=== PATIENT | female | born 1955 ===

== ENCOUNTER → 2021-02-10 14:50 | Outpatient (BNVA) | payer OTHER, SELFPAY | PROVIDERS: PCP Internal Medicine; Visit Provider Internal Medicine | DX: S81.812A Laceration without foreign body, left lower leg, initial encounter (principal); W26.9XXA Contact with unspecified sharp object(s), initial encounter | CPT/HCPCS: 99203 ==

== ENCOUNTER → 2021-02-12 10:21 | Outpatient (BNVA) | payer OTHER, SELFPAY | PROVIDERS: PCP Internal Medicine; Visit Provider Physician Assistant | DX: S81.812A Laceration without foreign body, left lower leg, initial encounter (principal); X58.XXXA Exposure to other specified factors, initial encounter | CPT/HCPCS: 99214 ==

== ENCOUNTER → 2021-02-17 14:26 | Outpatient (BNVA) | payer OTHER, SELFPAY | PROVIDERS: PCP Internal Medicine; Visit Provider Internal Medicine | DX: L03.116 Cellulitis of left lower limb (principal) | CPT/HCPCS: 87071; 87205; 99214 ==

== ENCOUNTER → 2021-02-20 13:43 | Outpatient (BNVA) | payer OTHER, SELFPAY | PROVIDERS: PCP Internal Medicine; Visit Provider Internal Medicine | DX: S81.812D Laceration without foreign body, left lower leg, subsequent encounter (principal); L03.116 Cellulitis of left lower limb; W26.9XXD Contact with unspecified sharp object(s), subsequent encounter | CPT/HCPCS: 99213 ==

== ENCOUNTER → 2022-02-25 10:38 | Outpatient (BNVA) | payer OTHER, SELFPAY | PROVIDERS: PCP Internal Medicine; Visit Provider Physician Assistant | DX: S69.91XD Unspecified injury of right wrist, hand and finger(s), subsequent encounter (principal); W23.0XXD Caught, crushed, jammed, or pinched between moving objects, subsequent encounter | CPT/HCPCS: 73110; 73130; 99203 ==

== ENCOUNTER 2022-03-10 | Outpatient (REF) | payer OTHER, SELFPAY ==
--- NOTE | ~2022-03-10 | XR_ITS ---
EXAMINATION: XR HAND, RIGHT CLINICAL INFORMATION: Pain. COMPARISON: 02/25/2022 wrist films TECHNIQUE: AP and lateral views of the right hand. FINDINGS: There is degeneration at the level of the 1st digit. This concludes the base of the thumb and MCP joint as well as the interphalangeal joint. There is no convincing evidence for an acute fracture or dislocation on this limited study. Some dystrophic calcification likely present at the MCP joint toward the radial aspect. Cannot completely exclude avulsion fracture but this would require a traumatic history. XR/XR hand RT min 3V IMPRESSION: Degenerative changes. No acute finding. If further evaluation is warranted recommend MR
== END 2022-03-10 00:01 ==
LOC: HO.HOSX
PROVIDERS: Visit Provider Physician Assistant
DX: S60.221A Contusion of right hand, initial encounter (principal)
CPT/HCPCS: 73130; 99202

== ENCOUNTER → 2022-05-19 13:33 | Outpatient (BNVA) | payer BC, OTHER, SELFPAY | PROVIDERS: PCP Internal Medicine; Visit Provider Physician Assistant | DX: S60.221D Contusion of right hand, subsequent encounter (principal) | CPT/HCPCS: 99212 ==

== ENCOUNTER → 2022-08-11 14:29 | Outpatient (BNVA) | payer BC, SELFPAY | PROVIDERS: PCP Internal Medicine; Visit Provider Physician Assistant | DX: M19.041 Primary osteoarthritis, right hand (principal) | CPT/HCPCS: 99212 ==

== ENCOUNTER → 2022-09-01 12:46 | Outpatient (BNVA) | payer BC, SELFPAY | PROVIDERS: PCP Internal Medicine; Visit Provider Orthopaedic Surgery ==

== ENCOUNTER 2022-10-27 11:33 | Outpatient (AMB) | payer OTHER, BC, SELFPAY ==
--- NOTE | 2022-10-27 11:39 | MHC.OFFVIS ---
Intake Vital Signs 10/27/22 11:40 Height 5 ft 2 in Weight 115 lb BMI 21.0 Intake Visit Reasons: OV-Osteoarthritis of right hand Intake Note: Gavi 66 yr old - hand dominant male presents today for her right hand contusion from 02/02/22/ O.A hand pain. States she continues to have soreness especially around base of thumb. Allergies acetaminophen [From Tylox] Allergy (Unknown, Verified 10/27/22 11:41) could not focus, hyper atorvastatin [Lipitor] Allergy (Unknown, Verified 10/27/22 11:41) muscle pain codeine Allergy (Unknown, Verified 10/27/22 11:41) could not focus, hyper latex Allergy (Unknown, Verified 10/27/22 11:41) rash oxycodone Allergy (Unknown, Verified 10/27/22 11:41) could not focus Sulfa (Sulfonamide Antibiotics) Allergy (Unknown, Verified 10/27/22 11:41) pt does not remember adhesive Adverse Reaction (Intermediate, Verified 10/27/22 11:41) skin breakdown, degradation of skin to raw layers Hydrocodone-Ibuprofen Allergy (Unknown, Uncoded 10/27/22 11:41) could not focus HPI OV-Osteoarthritis of right hand HPI Details Gavi is a 66 year old right hand dominant woman, 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 On 02/02/22 she injured the right hand at the basal joint when she was trying to set a lock on a wheelchair and her hand slipped and struck the brake of the wheelchair right on the basal joint of the thumb. She has been working light duty since her last appointment, with a 20lb weight limit restriction. She has not been pushing the wheelchairs at school, and feels like she has been able to do her job well.. She says she does still have some pain about the base of her thumb. She describes her pain as an ache and says it worsens with activity. She says she wakes up some mornings with numbness in the dorsal aspect her thumb, but denies numbness in any other digits. She finds some relief from her thumb spica splint, which she wears to work. [facility] Medical History Annual physical exam Elevated CEA Hyperglycemia Hyperlipidemia Hypothyroid Lung nodules Mammogram normal Normal colonoscopy Osteopenia Osteoporosis Sleep apnea Tobacco dependence Vitamin D deficiency Surgical History H/O oophorectomy No pertinent past surgical history Family History Father No problems noted. Mother No problems noted. Social History Housing: House Patient Tobacco Use Status: Current everyday Tobacco user Tobacco use type: Cigarette Cigarettes Per Day: 5 e-Cigarette/Vaping Use: Never Used Current occupational status: employed Cognitive needs: No Hearing needs: No Vision needs: Yes Review of Systems Const All systems reviewed & are unremarkable except as noted in HPI and below Physical Exam Vital Signs: BMI result Body Mass Index 21.0 Const General: no acute distress and alert Orientation/consciousness: patient oriented x3 Neuro General: patient oriented x3 Extrem Other: Evaluation of Right Upper Extremity: The patient is alert, oriented, and in no acute distress Neuro: Median, Ulnar, Radial nerves motor and sensory intact and sensation is normal to the tips of all digits Vascular: Cap refill brisk ROM: She can make a fist and extend all her digits No locking or catching Good active thumb ROM She does have a positive shoulder sign on the right Most tender over the basal joint No tenderness over the A1 brenda or with the 1st dorsal compartment Negative Terri test bilaterally MCP joint stable on exam and no A1 brenda tenderness Psych Appearance: grossly normal Affect: normal affect Attitude: cooperative Assessment & Plan Assessment & Plan (1) Osteoarthritis of right hand: Code(s): M19.041 - Primary osteoarthritis, right hand (2) Contusion of hand, right: Code(s): S60.221A - Contusion of right hand, initial encounter Plan Assessment and plan: 1. Right basal joint osteoarthritis, S/P work related contusion and exacerbation. DOI: 02/02/22 This is a work-related injury I educated her about this condition She continues to have some pain with use of her hand, but her symptoms have improved significantly since her last appointment She is concerned about having to push this full size child in a wheelchair again. She will continue to wear her thumb spica splint with daily activity I discussed activity modification, she is to limit or avoid any heavy or repetitive pinching or gripping activities If she develops any increased aching pain she may benefit from an injection in the future. She was given a note to continue working light duty, increasing her weight limit to 30 lb. Both the patient and I are concerned that pushing a heavy wheelchair may exacerbate her symptoms She will follow up in 3 months to see how she is doing. She may benefit from this being an accommodation for her moving forward. 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 I reassured her that nothing was being recorded and she appeared to be comfortable with this by the end of the visit. Scribed for Robina Stewart MD by Mitch Blackwell, medical dir, on 10/27/22 at 12:10 PM, EST. Coding Level of Care Code Est Pt Level 3 (06684) Diagnoses Osteoarthritis of right hand M19.041 Contusion of hand, right S60.221A
[2022-10-27 11:40] VITALS: BMI 21.0
== END 2022-10-27 12:38 | disposition home or self-care (01) ==
PROVIDERS: Visit Provider Orthopaedic Surgery
DX: S60.221D Contusion of right hand, subsequent encounter (principal); M19.041 Primary osteoarthritis, right hand
CPT/HCPCS: 99213

== ENCOUNTER → 2022-10-27 11:33 | Outpatient (BNVA) | payer OTHER, BC, SELFPAY | PROVIDERS: Visit Provider Orthopaedic Surgery | DX: M19.041 Primary osteoarthritis, right hand (principal); S60.221D Contusion of right hand, subsequent encounter; X58.XXXD Exposure to other specified factors, subsequent encounter | CPT/HCPCS: 99212 ==

== ENCOUNTER → 2023-01-27 13:06 | Outpatient (BNVA) | payer OTHER, BC, SELFPAY | PROVIDERS: PCP Internal Medicine; Visit Provider Orthopaedic Surgery ==

== ENCOUNTER 2023-02-09 12:37 | Outpatient (AMB) | payer OTHER, BC, SELFPAY ==
[2023-02-09 12:43] VITALS: BMI 21.0
--- NOTE | 2023-02-09 12:43 | A.OFFVIS_ITS ---
Intake Vital Signs 02/09/23 12:43 Height 5 ft 2 in Weight 115 lb BMI 21.0 Intake Visit Reasons: OV-Osteoarthritis of right hand Intake Note: Lidia 67 yr old female presents today for her follow up visit for her Right basal joint osteoarthritis, S/P work related contusion and exacerbation. DOI: 02/02/22 This is a work-related injury. States she cont's to use her brace and feels she cont's nick limited ROm. Patient also needs an updated work note with restrictions as needed. Allergies acetaminophen [From Tylox] Allergy (Unknown, Verified 02/09/23 12:50) could not focus, hyper atorvastatin [Lipitor] Allergy (Unknown, Verified 02/09/23 12:50) muscle pain codeine Allergy (Unknown, Verified 02/09/23 12:50) could not focus, hyper latex Allergy (Unknown, Verified 02/09/23 12:50) rash oxycodone Allergy (Unknown, Verified 02/09/23 12:50) could not focus Sulfa (Sulfonamide Antibiotics) Allergy (Unknown, Verified 02/09/23 12:50) pt does not remember adhesive Adverse Reaction (Intermediate, Verified 02/09/23 12:50) skin breakdown, degradation of skin to raw layers Hydrocodone-Ibuprofen Allergy (Unknown, Uncoded 02/09/23 12:50) could not focus HPI OV-Osteoarthritis of right hand HPI Details Gavi is a 67 year old right hand dominant woman, 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 Again, she injured the right hand at the basal joint when she was trying to set a lock on a wheelchair and her hand slipped and struck the brake of the wheelchair right on the basal joint of the thumb. She has been working light duty since her last appointment, with a 30lb weight limit restriction. She has not been pushing the wheelchairs at school, and feels like she has been able to do her job well. She says she does still have some pain about the base of her thumb, along with limited ROM. She describes her pain as an ache and says it worsens with activity. She continues to wear her thumb spica splint with daily activity, including at work, which she finds helpful. She would like an updated work note with her restrictions. She feels that as long as she can avoid pushing a wheelchair she is able to continue working [facility] Medical History Annual physical exam Elevated CEA Hyperglycemia Hyperlipidemia Hypothyroid Lung nodules Mammogram normal Normal colonoscopy Osteopenia Osteoporosis Sleep apnea Tobacco dependence Vitamin D deficiency Surgical History H/O oophorectomy No pertinent past surgical history Family History Father No problems noted. Mother No problems noted. Social History Housing: House Patient Tobacco Use Status: Current everyday Tobacco user Tobacco use type: Cigarette Cigarettes Per Day: 5 e-Cigarette/Vaping Use: Never Used Current occupational status: employed Cognitive needs: No Hearing needs: No Vision needs: Yes Physical Exam Vital Signs: BMI result Body Mass Index 21.0 Const General: no acute distress and alert Orientation/consciousness: patient oriented x3 Neuro General: patient oriented x3 Extrem Other: Evaluation of Right Upper Extremity: The patient is alert, oriented, and in no acute distress Neuro: Median, Ulnar, Radial nerves motor and sensory intact and sensation is normal to the tips of all digits Vascular: Cap refill brisk ROM: She can make a fist and extend all her digits No locking or catching Good active thumb ROM With encouragement she could touch her thumb to the tip of her small finger and then down to the base of the finger She does have a positive shoulder sign on the right Most tender over the basal joint + CMC grind No tenderness over the A1 brenda or with the 1st dorsal compartment Psych Appearance: grossly normal Affect: normal affect Attitude: cooperative Assessment & Plan Assessment & Plan (1) Osteoarthritis of right hand: Code(s): M19.041 - Primary osteoarthritis, right hand (2) Contusion of hand, right: Code(s): S60.221A - Contusion of right hand, initial encounter Plan Assessment and plan: 1. Right basal joint osteoarthritis, S/P work related contusion and exacerbation. DOI: 02/02/22 This is a work-related injury I educated her about this condition She continues to have some pain with use of her hand, but her symptoms have improved significantly since her last appointment She is concerned about having to push this full size child in a wheelchair again. She was fitted for a new comfort cool splint to wear with daily activity, prn She is to remove her splint when at home to work on ROM exercises I discussed activity modification, she is to limit or avoid any heavy or repetitive pinching or gripping activities If she develops any increased aching pain she may benefit from an injection in the future. She was given a note to continue working light duty, with a 30 lb weight limit and no pushing of wheelchairs She can follow up prn Scribed for Robina Stewart MD by Mitch Blackwell, medical donation professional, on 02/09/23 at 1:20 PM, EST. Coding Level of Care Code Est Pt Level 3 (89658) Diagnoses Osteoarthritis of right hand M19.041 Contusion of hand, right S60.221A
== END 2023-02-09 13:53 | disposition home or self-care (01) ==
PROVIDERS: PCP Internal Medicine; Visit Provider Orthopaedic Surgery
DX: S60.221A Contusion of right hand, initial encounter (principal); M19.041 Primary osteoarthritis, right hand
CPT/HCPCS: 99213

== ENCOUNTER → 2023-02-09 12:37 | Outpatient (BNVA) | payer OTHER, BC, SELFPAY | PROVIDERS: PCP Internal Medicine; Visit Provider Orthopaedic Surgery | DX: M19.041 Primary osteoarthritis, right hand (principal); S60.221D Contusion of right hand, subsequent encounter | CPT/HCPCS: 99212 ==

== ENCOUNTER 2023-07-21 13:12 | Outpatient (AMB) | payer BC, SELFPAY ==
[2023-07-21 13:25] VITALS: BP 136/80; PULSE 73; O2SAT 97; BMI 20.8
--- NOTE | 2023-07-21 13:25 | A.OFFPC_ITS ---
Vital Signs 07/21/23 13:25 Height 5 ft 2 in Weight 114 lb BMI 20.8 BP 136/80 Blood Pressure Location Lt brachial Position Sitting Pulse 73 Pulse Source Pulse Oximeter Pulse Oximetry (%) 97 Oxygen Delivery Method Room Air Intake Visit Reasons: Lower abdominal pain, vaginal discomfort Intake Note: Pt is here today for a sick visit. Pt c/o L lower abdominal pain and a lump in the groin area on the L side. Allergies acetaminophen [From Tylox] Allergy (Unknown, Verified 07/21/23 13:36) could not focus, hyper atorvastatin [Lipitor] Allergy (Unknown, Verified 07/21/23 13:36) muscle pain codeine Allergy (Unknown, Verified 07/21/23 13:36) could not focus, hyper latex Allergy (Unknown, Verified 07/21/23 13:36) rash oxycodone Allergy (Unknown, Verified 07/21/23 13:36) could not focus Sulfa (Sulfonamide Antibiotics) Allergy (Unknown, Verified 07/21/23 13:36) pt does not remember adhesive Adverse Reaction (Intermediate, Verified 07/21/23 13:36) skin breakdown, degradation of skin to raw layers Hydrocodone-Ibuprofen Allergy (Unknown, Uncoded 07/21/23 13:36) could not focus Medication List - Last Reconciled 07/21/23 by Julieta Luque MD cholecalciferol (vitamin D3) 50 mcg PO DAILY levothyroxine 125 mcg PO DAILY pravastatin 10 mg PO DAILY Tobacco use date assessed: 07/21/23 Fall risk assessment: 1 Fall in past year Last assessed Fall Risk: 07/21/23 Dental Screening Dental Screen Date: 07/21/23 Did you have a dental visit in the last 12 months?: Yes Did you have a dental problem in the last 6 months where you did not have access to dental care?: No Was dental information given to patient?: Patient has dentist HPI Lower abdominal pain, vaginal discomfort HPI Details Pt presents complaining of increase bloating and intermittent heartburn worse after eating not related to diet and intermittent sharp abdominal pain occasionally radiating to left lower quadrant and vaginal area. Patient reports intermittent constipation and sensation of incomplete defecation for a few months getting worse over last few weeks. Patient denies nausea vomiting hematochezia melena hematuria dysuria. 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 Pt has been feeling a lump in her left groin on and off for few weeks. [facility] Medical History Osteoporosis Sleep apnea Vitamin D deficiency Lung nodules Tobacco dependence Mammogram normal Elevated CEA Normal colonoscopy Hyperglycemia Osteopenia Annual physical exam Hyperlipidemia Hypothyroid Surgical History H/O oophorectomy No pertinent past surgical history Family History Father No problems noted. Mother No problems noted. Social History Housing: House Patient Tobacco Use Status: Current everyday Tobacco user Tobacco use type: Cigarette Cigarettes Per Day: 5 e-Cigarette/Vaping Use: Never Used Current occupational status: employed Cognitive needs: No Hearing needs: No Vision needs: Yes Questionnaire PHQ-9 Over the last 2 weeks, how often have you been bothered by any of the following problems? 1. Little interest or pleasure in doing things: not at all 2. Feeling down, depressed, or hopeless: not at all 3. Trouble falling or staying asleep, or sleeping too much: not at all 4. Feeling tired or having little energy: not at all 5. Poor appetite or overeating: not at all 6. Feeling bad about yourself - or that you are a failure or have let yourself or your family down: not at all 7. Trouble concentrating on things, such as reading the newspaper or watching television: not at all 8. Moving or speaking so slowly that other people could have noticed. Or the opposite - being so fidgety or restless that you have been moving around a lot more than usual: not at all 9. Thoughts that you would be better off or of hurting yourself in some way: not at all Total score: 0 Depression Screening Interpretation: Negative Depression Screening Done: Yes Source: Developed by Drs. David Peña, Lavonne Bruno, Jeff Simmons and colleagues, with an educational marlee from [employer]. Thrive Questionnaire Date Thrive assessed: 07/21/23 I am a: Patient What is your living situation today?: I have a steady place to live Within the past 12 months, did the food you bought not last and you didn't have the money to get more?: Never true Within the past 12 months, did you worry whether your food would run out before you got money to buy more?: Never true Do you have trouble paying for medicines?: No Do you have trouble getting transportation to medical appointments?: No Do you have trouble paying your heating and electricity bill?: No Do you have trouble taking care of your child, family member or friend?: No Do you have trouble with day-to-day activities such as bathing, preparing meals, shopping, managing finances, etc.?: No Are you currently unemployed and looking for a job?: No Are you interested in more education?: No Please select the resources that you would like help with: None THRIVE Score: 0 AUDIT C Alcohol Use Questionnaire (AUDIT-C) 1. How often do you have a drink containing alcohol?: Monthly or less 2. How many drinks containing alcohol do you have on a typical day when you are drinking?: 1 or 2 3. How often do you have six or more drinks on one occasion?: Never Total Score: 1 UMA-7 AMB Questionnaire UMA-7 Date UMA - 7 assessed: 07/29/22 Feeling nervous, anxious, or on edge: 0 = Not at all Not being able to stop or control worryin = Not at all Worrying too much about different things: 0 = Not at all Trouble relaxin = Not at all Being so restless that it is hard to sit still: 0 = Not at all Becoming easily annoyed or irritable: 0 = Not at all Feeling afraid as if something awful might happen: 0 = Not at all Total UMA-7 score (0-4 normal; 5-9 mild; 10-14 moderate; 15-21 severe): 0 Source: Developed by Drs. David Peña, Lavonne Bruno, Jeff Simmons and colleagues, with an educational marlee from [employer]. Review of Systems Const All systems reviewed & are unremarkable except as noted in HPI and below Reports no additional complaints Eyes Reports no additional complaints ENT Reports no additional complaints Card Reports no additional complaints Resp Reports no additional complaints GI Reports no additional complaints Reports no additional complaints Musc Reports no additional complaints Physical exam (Primary Care) Vital Signs: Last Vital Signs Pulse 73 07/21/23 13:25 BP 136/80 07/21/23 13:25 Pulse Ox 97 07/21/23 13:25 Oxygen Delivery Method Room Air 07/21/23 13:25 BMI result Body Mass Index 20.8 Tobacco/Smoking Status: Tobacco use Status Tobacco use date assessed 07/21/23 07/21/23 13:41 Patient Tobacco Use Status Current everyday Tobacco 07/21/23 13:26 Tobacco use type Cigarette 07/21/23 13:26 e-Cigarette/Vaping Use Never Used 07/21/23 13:26 PHQ-9: PHQ-9 Score PHQ-9: Total score 0 07/21/23 13:41 Depression Screening Interpretation: Negative Thrive Assessment: Date of Thrive Assessment Date Thrive assessed 07/21/23 07/21/23 13:41 Const General: no acute distress HENMT Head: Yes normal to inspection Mouth: Normal oral and palatal mucosa present Eyes General: appearance normal, both eyes and all related structures Resp Effort & Inspection: normal respiratory effort Auscultation: clear to auscultation bilaterally Cardio Rhythm: regular rhythm Heart sounds: S1 normal heart sound present and S2 normal heart sound present GI Inspection: Yes normal to inspection Palpation (GI): Tenderness to palpation present (GI) in the LLQ and No Rebound tenderness present Percussion: Yes normal to percussion Auscultation: normal bowel sounds Extrem Other: There is a palpable about 1.5 cm mobile rubbery slightly tender lymph node in left groin Assessment and Plan Assessment & Plan (1) Left groin mass: Code(s): R19.09 - Other intra-abdominal and pelvic swelling, mass and lump Plan: Obtain left groin ultrasound to evaluate (2) Abdominal pain: Code(s): R10.9 - Unspecified abdominal pain Plan: Schedule a CT of the abdomen pelvis to rule out diverticulitis (3) Diverticulitis: Code(s): K57.92 - Diverticulitis of intestine, part unspecified, without perforation or abscess without bleeding Orders: Orders CT abdomen pelvis w IV con Today K57.92 - Diverticulitis of intestine, part unspecified, without perforation or abscess without bleeding, R10.9 - Unspecified abdominal pain Complete Blood Count Auto Diff Today K57.92 - Diverticulitis of intestine, part unspecified, without perforation or abscess without bleeding, R10.9 - Unspecified abdominal pain Blood Urea Nitrogen Today K57.92 - Diverticulitis of intestine, part unspecified, without perforation or abscess without bleeding, R10.9 - Unspecified abdominal pain Creatinine Today K57.92 - Diverticulitis of intestine, part unspecified, without perforation or abscess without bleeding, R10.9 - Unspecified abdominal pain US pelvic limited Today R10.9 - Unspecified abdominal pain, R19.09 - Other intra-abdominal and pelvic swelling, mass and lump Coding Level of Care Code Est Pt Level 3 (59076) Diagnoses Left groin mass R19.09 Abdominal pain R10.9 Diverticulitis K57.92
== END 2023-07-21 15:28 | disposition home or self-care (01) ==
PROVIDERS: PCP Internal Medicine; Visit Provider Internal Medicine
DX: R19.09 Other intra-abdominal and pelvic swelling, mass and lump (principal); R10.9 Unspecified abdominal pain; K57.92 Diverticulitis of intestine, part unspecified, without perforation or abscess without bleeding
CPT/HCPCS: 99213

== ENCOUNTER 2023-07-21 14:34 | Outpatient (REF) | payer BC, OTHER, SELFPAY ==
--- NOTE | ~2023-07-21 | US_ITS ---
EXAMINATION: US PELVIS, LIMITED/FOLLOW UP CLINICAL INFORMATION: Left-sided pain. Lump. COMPARISON: None available. TECHNIQUE: Limited ultrasound examination of the left groin region was performed by the tomography technologist using a high-resolution linear 12 MHz transducer. FINDINGS: The area indicated by the patient was scanned by the technologist. There is no evidence of a fluid collection, soft tissue mass or herniated fat or bowel in the examined left groin. At the site of concern, there is a lymph node of normal size, morphology and echotexture. It measures 0.4 cm in short axis and 1.8 cm in long axis dimension and has an echogenic fatty hilum. US/US pelvic limited IMPRESSION: A normal inguinal lymph node is observed in the site of concern. Otherwise, unremarkable exam.
[2023-07-21 16:07] LABS: MANUAL DIFF FLAG NO
[2023-07-21 16:15] LABS: Basophils Absolute Auto 0.1 X10*3/uL (0.0-0.2); Basophils Percent Auto 0.8 % (0-2); Eosinophils Absolute Auto 0.1 X10*3/uL (0.0-0.4); Eosinophils Percent Auto 0.5 % (0-4); Hematocrit 41.7 % (37.0-47.0); Hemoglobin 14.1 g/dl (12.0-16.0); Imm Gran Abs Auto 0.03 X10*3/uL (0.00-0.03); Imm Gran Pct Auto 0.3 % (0.0-0.4); Lymphocytes Absolute Auto 2.9 X10*3/uL (1.2-4.9); Lymphocytes Percent Auto 28.1 % (20-40); Mean Corpuscular HGB Conc 33.8 g/dl (31.0-35.0); Mean Corpuscular Volume 91.6 fL (80.0-98.0); Mean Platelet Volume 11.9 fL (9.4-12.3); Monocytes Absolute Auto 0.8 X10*3/uL (0.1-1.2); Monocytes Percent Auto 7.4 % (2-11); Neutrophils Absolute Auto 6.5 x10*3/uL (2.0-8.3); Neutrophils Percent Auto 62.9 % (45-73); Platelet Count 325 X10*3/uL (160-400); Red Blood Count 4.55 X10*6/uL (4.20-5.50); Red Cell Distribution Width 12.2 % (11.0-16.0); White Blood Count 10.3 X10*3/uL (4.8-10.8)
[2023-07-21 16:39] LABS: Blood Urea Nitrogen 11 mg/dL (9-16); Estimated Glomerular Filt Rate > 60
[2023-07-25 23:04] LABS: Vitamin K1 285 pg/mL (130-1500)
== END 2023-07-21 14:35 | disposition home or self-care (01) ==
LOC: HO.HMGCX 14:34
PROVIDERS: PCP Internal Medicine; Visit Provider Internal Medicine
DX: K57.92 Diverticulitis of intestine, part unspecified, without perforation or abscess without bleeding (principal); R19.09 Other intra-abdominal and pelvic swelling, mass and lump; S60.221A Contusion of right hand, initial encounter
CPT/HCPCS: 36415; 76857; 82565; 84520; 84597; 85025

== ENCOUNTER 2023-08-02 14:14 | Outpatient (AMB) | payer BC, SELFPAY ==
[2023-08-02 14:15] VITALS: BP 136/78; PULSE 83; O2SAT 98; BMI 20.8
--- NOTE | 2023-08-02 14:15 | MHC.PC.OV ---
Vital Signs 08/02/23 14:15 Height 5 ft 2 in Weight 114 lb BMI 20.8 BP 136/78 Blood Pressure Location Rt brachial Position Sitting Pulse 83 Pulse Source Pulse Oximeter Pulse Oximetry (%) 98 Oxygen Delivery Method Room Air Intake Visit Reasons: PE jesse Luque lives far away Intake Note: Pt is here today for PE. Allergies acetaminophen [From Tylox] Allergy (Unknown, Verified 08/02/23 14:19) could not focus, hyper atorvastatin [Lipitor] Allergy (Unknown, Verified 08/02/23 14:19) muscle pain codeine Allergy (Unknown, Verified 08/02/23 14:19) could not focus, hyper latex Allergy (Unknown, Verified 08/02/23 14:19) rash oxycodone Allergy (Unknown, Verified 08/02/23 14:19) could not focus Sulfa (Sulfonamide Antibiotics) Allergy (Unknown, Verified 08/02/23 14:19) pt does not remember adhesive Adverse Reaction (Intermediate, Verified 08/02/23 14:19) skin breakdown, degradation of skin to raw layers Hydrocodone-Ibuprofen Allergy (Unknown, Uncoded 08/02/23 14:19) could not focus Medication List - Last Reconciled 08/02/23 by Julieta Luque MD cholecalciferol (vitamin D3) 50 mcg PO DAILY levothyroxine 125 mcg PO DAILY pravastatin 10 mg PO DAILY Tobacco use date assessed: 07/21/23 Dental Screening Dental Screen Date: 07/21/23 HPI PE jesse Luque lives far away HPI Details Pt presents for PE. Pt c/o increase gas, more frequent BMs, sensation of not complete elimination on and off for the few months. Pt reports being under a lot of stress at work and feeling more anxious for the last few months. She had abnormal mammogram and is scheduled for stereotactic right breast biopsy for calcification at the end of this month. Patient had negative CT of the abdomen and pelvis. Her last colonoscopy was 5 years ago and patient is interested in follow-up with Dr. Collier to discuss her GI symptoms. [facility] Medical History (Updated 08/02/23 @ 15:56 by Julieta Luque MD) Sleep apnea Vitamin D deficiency Lung nodules Tobacco dependence Mammogram normal Elevated CEA Hyperglycemia Osteopenia Annual physical exam Hyperlipidemia Hypothyroid Surgical History (Updated 08/02/23 @ 16:01 by Julieta Luque MD) H/O oophorectomy No pertinent past surgical history Family History Father No problems noted. Mother No problems noted. Social History Housing: House Patient Tobacco Use Status: Current everyday Tobacco user Tobacco use type: Cigarette Cigarettes Per Day: 5 e-Cigarette/Vaping Use: Never Used service: No Current occupational status: employed Cognitive needs: No Hearing needs: No Vision needs: Yes Questionnaire Thrive Questionnaire Date Thrive assessed: 07/21/23 UMA-7 AMB Questionnaire UMA-7 Date UMA - 7 assessed: 07/29/22 Source: Developed by Drs. David Peña, Lavonne Bruno, Jeff Simmons and colleagues, with an educational marlee from [employer]. Review of Systems Const All systems reviewed & are unremarkable except as noted in HPI and below Reports no additional complaints Eyes Reports no additional complaints ENT Reports no additional complaints Card Reports no additional complaints Resp Reports no additional complaints GI Reports no additional complaints Reports no additional complaints Physical exam (Primary Care) Vital Signs: Last Vital Signs Pulse 83 08/02/23 14:15 BP 136/78 08/02/23 14:15 Pulse Ox 98 08/02/23 14:15 Oxygen Delivery Method Room Air 08/02/23 14:15 BMI result Body Mass Index 20.8 Tobacco/Smoking Status: Tobacco use Status Tobacco use date assessed 07/21/23 08/02/23 14:17 Patient Tobacco Use Status Current everyday Tobacco 08/02/23 14:17 Tobacco use type Cigarette 08/02/23 14:17 e-Cigarette/Vaping Use Never Used 08/02/23 14:17 Thrive Assessment: Date of Thrive Assessment Date Thrive assessed 07/21/23 08/02/23 14:17 Const General: no acute distress HENMT Head: Yes normal to inspection Ears: hearing grossly normal bilaterally Face and sinus: Yes normal facial exam Mouth: Normal oral and palatal mucosa present Throat: Yes posterior oropharynx normal Eyes General: appearance normal, both eyes and all related structures Neck Neck: Yes no lymphadenopathy and Yes supple Resp Effort & Inspection: normal respiratory effort Auscultation: clear to auscultation bilaterally Cardio Rhythm: regular rhythm Heart sounds: S1 normal heart sound present and S2 normal heart sound present GI Inspection: Yes normal to inspection Palpation (GI): Soft to palpation Percussion: Yes normal to percussion Auscultation: normal bowel sounds Skin General skin exam: no rashes or lesions noted Assessment and Plan Assessment & Plan (1) Hyponatremia: Code(s): E87.1 - Hypo-osmolality and hyponatremia Plan: Patient was advised to decrease free water intake and repeat BMP in 1 month (2) Osteopenia: Comment: DEXA 09/2021 T score -2.1 FEMORAL NECK AN AP SPINE, [facility] Code(s): M85.80 - Other specified disorders of bone density and structure, unspecified site Plan: Patient will schedule a repeat DEXA at [facility] (3) Hx of colonoscopy: Comment: Dr. Madden 2019, 1 small polyp Code(s): Z98.890 - Other specified postprocedural states Plan: Referred to GI to discuss new GI symptoms. Patient was advised to have a food diary and add Citrucel daily for fiber (4) Tobacco dependence: Comment: 5 cig/d, 07/08 Code(s): F17.200 - Nicotine dependence, unspecified, uncomplicated Plan: Tobacco quitting discussed with the patient (5) Annual physical exam: Code(s): Z00.00 - Encounter for general adult medical examination without abnormal findings Plan: Well-balanced diet regular physical activity discussed with the patient. She will have a right breast biopsy at [facility] (6) Hypothyroid: Code(s): E03.9 - Hypothyroidism, unspecified Plan: Continue levothyroxine (7) Hyperlipidemia: Code(s): E78.5 - Hyperlipidemia, unspecified Plan: Continue statin, physical in 1 year Orders: Orders Basic Metabolic Panel 1 Month E87.1 - Hypo-osmolality and hyponatremia XR DEXA axial skeleton Today M85.80 - Other specified disorders of bone density and structure, unspecified site Referrals Gastroenterology Referral Z00.00 - Encounter for general adult medical examination without abnormal findings Medications: New hydrocortisone acetate (Proctocort) 30 mg MT BEDTIME 12 ea 3RF Coding Level of Care Code Est Pt Prev Care >65y(23484) Diagnoses Hyponatremia E87.1 Osteopenia M85.80 Hx of colonoscopy Z98.890 Tobacco dependence F17.200 Annual physical exam Z00.00 Hypothyroid E03.9 Hyperlipidemia E78.5
== END 2023-08-02 16:01 | disposition home or self-care (01) ==
PROVIDERS: Visit Provider Internal Medicine
DX: E87.1 Hypo-osmolality and hyponatremia (principal); M85.80 Other specified disorders of bone density and structure, unspecified site; Z98.890 Other specified postprocedural states; F17.200 Nicotine dependence, unspecified, uncomplicated; Z00.00 Encounter for general adult medical examination without abnormal findings; E03.9 Hypothyroidism, unspecified; E78.5 Hyperlipidemia, unspecified
CPT/HCPCS: 99397

== ENCOUNTER 2023-11-16 08:06 | Outpatient (AMB) | payer BC, SELFPAY ==
--- NOTE | 2023-11-16 08:08 | MHC.PC.OV ---
Vital Signs 11/16/23 08:09 Height 5 ft 2 in Weight 118 lb BMI 21.6 BP 136/82 Blood Pressure Location Lt brachial Position Sitting Pulse 72 Pulse Source Pulse Oximeter Pulse Oximetry (%) 99 Oxygen Delivery Method Room Air Intake Visit Reasons: Follow up visit Intake Note: Su is here today for a follow up visit on lump on her groin area. Allergies acetaminophen [From Tylox] Allergy (Unknown, Verified 11/16/23 08:11) could not focus, hyper atorvastatin [Lipitor] Allergy (Unknown, Verified 11/16/23 08:11) muscle pain codeine Allergy (Unknown, Verified 11/16/23 08:11) could not focus, hyper latex Allergy (Unknown, Verified 11/16/23 08:11) rash oxycodone Allergy (Unknown, Verified 11/16/23 08:11) could not focus Sulfa (Sulfonamide Antibiotics) Allergy (Unknown, Verified 11/16/23 08:11) pt does not remember adhesive Adverse Reaction (Intermediate, Verified 11/16/23 08:11) skin breakdown, degradation of skin to raw layers Hydrocodone-Ibuprofen Allergy (Unknown, Uncoded 11/16/23 08:11) could not focus Medication List - Last Reconciled 11/16/23 by Julieta Luque MD cholecalciferol (vitamin D3) 50 mcg PO DAILY hydrocortisone acetate (Proctocort) 30 mg NM BEDTIME levothyroxine 125 mcg PO DAILY pravastatin 10 mg PO DAILY Tobacco use date assessed: 11/16/23 Fall risk assessment: No Falls in past year Last assessed Fall Risk: 11/16/23 Dental Screening Dental Screen Date: 07/21/23 HPI Follow up visit HPI Details Pt presents for for follow-up of persistent left groin discomfort and palpable lump. Patient had pelvic and inguinal area ultrasound and a CT of the abdomen and pelvis which were negative for pathology. Patient was evaluated by GI PA Dr. Madden's office and was advised to take fiber and Colace. Patient denies constipation hematochezia melena and is up-to-date with colonoscopy. Patient has been feeling very anxious and concerned about her health because she had right breast biopsy consistent with fat epithelial atypia and excision of the area was recommended by [facility] surgeon Dr. Nora Ellis. [facility] Medical History Sleep apnea Vitamin D deficiency Lung nodules Tobacco dependence Mammogram normal Elevated CEA Hyperglycemia Osteopenia Annual physical exam Hyperlipidemia Hypothyroid Surgical History H/O oophorectomy No pertinent past surgical history Family History Father No problems noted. Mother No problems noted. Social History Housing: House Patient Tobacco Use Status: Current everyday Tobacco user Tobacco use type: Cigarette Cigarettes Per Day: 5 e-Cigarette/Vaping Use: Never Used service: No Current occupational status: employed Cognitive needs: No Hearing needs: No Vision needs: Yes Questionnaire PHQ-9 Over the last 2 weeks, how often have you been bothered by any of the following problems? 1. Little interest or pleasure in doing things: not at all 2. Feeling down, depressed, or hopeless: not at all 3. Trouble falling or staying asleep, or sleeping too much: not at all 4. Feeling tired or having little energy: not at all 5. Poor appetite or overeating: not at all 6. Feeling bad about yourself - or that you are a failure or have let yourself or your family down: not at all 7. Trouble concentrating on things, such as reading the newspaper or watching television: not at all 8. Moving or speaking so slowly that other people could have noticed. Or the opposite - being so fidgety or restless that you have been moving around a lot more than usual: not at all 9. Thoughts that you would be better off or of hurting yourself in some way: not at all Total score: 0 Depression Screening Interpretation: Negative Depression Screening Done: Yes Source: Developed by Drs. David Peña, Lavonne Bruno, Jeff Simmons and colleagues, with an educational marlee from [employer]. Thrive Questionnaire Date Thrive assessed: 11/16/23 I am a: Patient What is your living situation today?: I choose not to answer this question Within the past 12 months, did the food you bought not last and you didn't have the money to get more?: I choose not to answer this question Within the past 12 months, did you worry whether your food would run out before you got money to buy more?: I choose not to answer this question Do you have trouble paying for medicines?: I choose not to answer this question Do you have trouble getting transportation to medical appointments?: I choose not to answer this question Do you have trouble paying your heating and electricity bill?: I choose not to answer this question Do you have trouble taking care of your child, family member or friend?: I choose not to answer this question Do you have trouble with day-to-day activities such as bathing, preparing meals, shopping, managing finances, etc.?: I choose not to answer this question Are you currently unemployed and looking for a job?: I choose not to answer this question Are you interested in more education?: I choose not to answer this question Please select the resources that you would like help with: Housing/Group Home Currently or been in a relationship where the following occur: I choose not to answer THRIVE Score: 0 AUDIT C Alcohol Use Questionnaire (AUDIT-C) 1. How often do you have a drink containing alcohol?: 2-3 times a week 2. How many drinks containing alcohol do you have on a typical day when you are drinking?: 10 or more 3. How often do you have six or more drinks on one occasion?: Daily or almost daily Total Score: 11 UMA-7 AMB Questionnaire UMA-7 Date UMA - 7 assessed: 11/16/23 Feeling nervous, anxious, or on edge: 0 = Not at all Not being able to stop or control worryin = Not at all Worrying too much about different things: 0 = Not at all Trouble relaxin = Not at all Being so restless that it is hard to sit still: 0 = Not at all Becoming easily annoyed or irritable: 0 = Not at all Feeling afraid as if something awful might happen: 0 = Not at all Total UMA-7 score (0-4 normal; 5-9 mild; 10-14 moderate; 15-21 severe): 0 Source: Developed by Drs. David Peña, Lavonne Bruno, Jeff Simmons and colleagues, with an educational marlee from [employer]. Review of Systems Const All systems reviewed & are unremarkable except as noted in HPI and below Eyes Reports no additional complaints ENT Reports no additional complaints Card Reports no additional complaints Resp Reports no additional complaints GI Reports no additional complaints Reports no additional complaints Physical exam (Primary Care) Vital Signs: Last Vital Signs Pulse 72 11/16/23 08:09 BP 136/82 11/16/23 08:09 Pulse Ox 99 11/16/23 08:09 Oxygen Delivery Method Room Air 11/16/23 08:09 BMI result Body Mass Index 21.6 Tobacco/Smoking Status: Tobacco use Status Tobacco use date assessed 11/16/23 11/16/23 08:25 Patient Tobacco Use Status Current everyday Tobacco 11/16/23 08:25 Tobacco use type Cigarette 11/16/23 08:25 e-Cigarette/Vaping Use Never Used 11/16/23 08:25 PHQ-9: PHQ-9 Score PHQ-9: Total score 0 11/16/23 08:49 Depression Screening Interpretation: Negative Thrive Assessment: Date of Thrive Assessment Date Thrive assessed 11/16/23 11/16/23 08:25 Currently or been in a relationship where the following occur: I choose not to answer Const General: no acute distress HENMT Head: Yes normal to inspection Eyes General: appearance normal, both eyes and all related structures Resp Effort & Inspection: normal respiratory effort Auscultation: clear to auscultation bilaterally Cardio Rhythm: regular rhythm Heart sounds: S1 normal heart sound present and S2 normal heart sound present GI Other: There is a slight tenderness to palpation in the right inguinal area there are small mobile lymph nodes present but no erythema warmth Inspection: Yes normal to inspection Palpation (GI): Soft to palpation Percussion: Yes normal to percussion Auscultation: normal bowel sounds Assessment and Plan Assessment & Plan (1) Lump in the groin: Code(s): R19.09 - Other intra-abdominal and pelvic swelling, mass and lump Plan: Patient requested referral to a general surgeon at [facility]. She was given copy of report of the pelvic and abdominal ultrasound and CT (2) Hyponatremia: Code(s): E87.1 - Hypo-osmolality and hyponatremia Plan: Check BMP today (3) Anxiety: Code(s): F41.9 - Anxiety disorder, unspecified Plan: Stress management and mindfulness discussed with the patient. She declined medications and referral to a counselor Orders: Orders Basic Metabolic Panel Today E87.1 - Hypo-osmolality and hyponatremia Referrals General Surgery Referral R19.09 - Other intra-abdominal and pelvic swelling, mass and lump Coding Level of Care Code Est Pt Level 4 (88798) Diagnoses Lump in the groin R19.09 Hyponatremia E87.1 Anxiety F41.9
[2023-11-16 08:09] VITALS: BP 136/82; PULSE 72; O2SAT 99; BMI 21.6
== END 2023-11-16 10:20 | disposition home or self-care (01) ==
PROVIDERS: PCP Internal Medicine; Visit Provider Internal Medicine
DX: R19.09 Other intra-abdominal and pelvic swelling, mass and lump (principal); E87.1 Hypo-osmolality and hyponatremia; F41.9 Anxiety disorder, unspecified
CPT/HCPCS: 99214

== ENCOUNTER 2023-11-16 09:07 | Outpatient (REF) | payer BC, SELFPAY ==
[2023-11-16 10:36] LABS: Anion Gap 12 (12-20); Blood Urea Nitrogen 9 mg/dL (9-16); Calcium 9.9 mg/dL (8.4-10.2); Carbon Dioxide 28 mmol/L (22-29); Chloride 99 mmol/L (96-108); Estimated Glomerular Filt Rate > 60; Glucose Random 110 mg/dL (60-115); Potassium 5.2 mmol/L (3.3-5.1); Sodium 134 mmol/L (135-145)
== END 2023-11-16 09:08 | disposition home or self-care (01) ==
LOC: HO.HMGCLDS 09:07
PROVIDERS: PCP Internal Medicine; Visit Provider Internal Medicine
DX: E87.1 Hypo-osmolality and hyponatremia (principal)
CPT/HCPCS: 36415; 80048

== ENCOUNTER 2024-01-28 10:16 | Outpatient (AMB) | payer BC, SELFPAY ==
[2024-01-28 10:28] VITALS: BP 106/62; PULSE 60; O2SAT 96; BMI 20.7
--- NOTE | 2024-01-28 10:28 | MHC.PC.OV ---
Vital Signs 01/28/24 10:28 Height 5 ft 2 in Weight 113 lb BMI 20.7 BP 106/62 Blood Pressure Location Rt brachial Position Sitting Pulse 60 Pulse Source Pulse Oximeter Pulse Oximetry (%) 96 Oxygen Delivery Method Room Air Intake Visit Reasons: Sinus and cough Intake Note: Pt is here today for a sick visit. Pt c/o pressure in her chest that goes to her back because of the cough she is having. Pt states that most days her pain is 5 out 10. Pt states that she was on Doxycycline recently for acute sinusitis at the Urgent care. Pt would like to get a work note for today. Allergies acetaminophen [From Tylox] Allergy (Unknown, Verified 01/28/24 10:34) could not focus, hyper atorvastatin [Lipitor] Allergy (Unknown, Verified 01/28/24 10:34) muscle pain codeine Allergy (Unknown, Verified 01/28/24 10:34) could not focus, hyper latex Allergy (Unknown, Verified 01/28/24 10:34) rash oxycodone Allergy (Unknown, Verified 01/28/24 10:34) could not focus Sulfa (Sulfonamide Antibiotics) Allergy (Unknown, Verified 01/28/24 10:34) pt does not remember amoxicillin Allergy (Verified 01/28/24 10:51) vomiting nausea adhesive Adverse Reaction (Intermediate, Verified 01/28/24 10:34) skin breakdown, degradation of skin to raw layers Hydrocodone-Ibuprofen Allergy (Unknown, Uncoded 01/28/24 10:34) could not focus Medication List - Last Reconciled 01/28/24 by Julieta Luque MD benzonatate 100 mg PO TID cholecalciferol (vitamin D3) 50 mcg PO DAILY doxycycline hyclate 100 mg PO BID hydrocortisone acetate (Proctocort) 30 mg MA BEDTIME levothyroxine 125 mcg PO DAILY pravastatin 10 mg PO DAILY Tobacco use date assessed: 01/28/24 Dental Screening Dental Screen Date: 07/21/23 HPI Sinus and cough HPI Details Pt c/o sinus congestion, postnasal drip, persistent cough, with white sputum, chest pressure on and off for the last 2 weeks lasting a few hours at a time and mid back pain. Patient denies fever chills pleurisy shortness of breaths nausea vomiting. Pt had negative stress test at [facility] last week. She is scheduled to have a breast surgery next week at [facility]. Patient reports feeling anxious and worrying about her grandson who may have autism. She denies depression or suicide ideation. [facility] Medical History Sleep apnea Vitamin D deficiency Lung nodules Tobacco dependence Mammogram normal Elevated CEA Hyperglycemia Osteopenia Annual physical exam Hyperlipidemia Hypothyroid Surgical History H/O oophorectomy No pertinent past surgical history Family History Father No problems noted. Mother No problems noted. Social History Housing: House Patient Tobacco Use Status: Current everyday Tobacco user Tobacco use type: Cigarette Cigarettes Per Day: 5 e-Cigarette/Vaping Use: Never Used service: No Current occupational status: employed Cognitive needs: No Hearing needs: No Vision needs: Yes Questionnaire Thrive Questionnaire Date Thrive assessed: 11/16/23 I am a: Patient What is your living situation today?: I choose not to answer this question Within the past 12 months, did the food you bought not last and you didn't have the money to get more?: I choose not to answer this question Within the past 12 months, did you worry whether your food would run out before you got money to buy more?: I choose not to answer this question Do you have trouble paying for medicines?: I choose not to answer this question Do you have trouble getting transportation to medical appointments?: I choose not to answer this question Do you have trouble paying your heating and electricity bill?: I choose not to answer this question Do you have trouble taking care of your child, family member or friend?: I choose not to answer this question Do you have trouble with day-to-day activities such as bathing, preparing meals, shopping, managing finances, etc.?: I choose not to answer this question Are you currently unemployed and looking for a job?: I choose not to answer this question Are you interested in more education?: I choose not to answer this question Please select the resources that you would like help with: None Currently or been in a relationship where the following occur: I choose not to answer THRIVE Score: 0 UMA-7 AMB Questionnaire UMA-7 Date UMA - 7 assessed: 11/16/23 Source: Developed by Drs. David Peña, Lavonne Bruno, Jeff Simmons and colleagues, with an educational marlee from [employer]. Review of Systems Const All systems reviewed & are unremarkable except as noted in HPI and below Reports no additional complaints ENT Reports no additional complaints Card Reports no additional complaints Resp Reports no additional complaints GI Reports no additional complaints Physical exam (Primary Care) Vital Signs: Last Vital Signs Pulse 60 01/28/24 10:28 BP 106/62 01/28/24 10:28 Pulse Ox 96 01/28/24 10:28 Oxygen Delivery Method Room Air 01/28/24 10:28 BMI result Body Mass Index 20.7 Tobacco/Smoking Status: Tobacco use Status Tobacco use date assessed 01/28/24 01/28/24 10:36 Patient Tobacco Use Status Current everyday Tobacco 01/28/24 10:28 Tobacco use type Cigarette 01/28/24 10:28 e-Cigarette/Vaping Use Never Used 01/28/24 10:28 Thrive Assessment: Date of Thrive Assessment Date Thrive assessed 11/16/23 01/28/24 10:28 Currently or been in a relationship where the following occur: I choose not to answer Const General: no acute distress HENMT Head: Yes normal to inspection Ears: TM's normal bilaterally Face and sinus: Yes normal facial exam and No sinus tenderness Mouth: Normal oral and palatal mucosa present Throat: Yes postnasal drainage Eyes General: appearance normal, both eyes and all related structures Chest Other: Reproducible tenderness in anterior chest Resp Effort & Inspection: normal respiratory effort Auscultation: clear to auscultation bilaterally Cardio Rhythm: regular rhythm Heart sounds: S1 normal heart sound present and S2 normal heart sound present GI Inspection: Yes normal to inspection Palpation (GI): Soft to palpation Percussion: Yes normal to percussion Auscultation: normal bowel sounds Coding Level of Care Code Est Pt Level 3 (50016) Diagnoses Cough R05.9 Anxiety F41.9 Assessment & Plan Assessment & Plan (1) Cough: Code(s): R05.9 - Cough, unspecified Category: Medical Plan: For persistent cough and postnasal drip doxycycline for 5 days is prescribed. Chest x-ray will be obtained (2) Anxiety: Code(s): F41.9 - Anxiety disorder, unspecified Category: Medical Plan: Stress management discussed with the patient she declined taking medications Orders: Orders XR chest 2V Today R05.9 - Cough, unspecified Medications: New benzonatate 100 mg PO TID 30 caps 0RF doxycycline hyclate 100 mg PO BID 10 tabs 0RF Discontinued benzonatate Discontinued Reason: Doctor's Order 100 mg PO TID 30 caps 0RF
== END 2024-01-28 11:32 | disposition home or self-care (01) ==
PROVIDERS: PCP Internal Medicine; Visit Provider Internal Medicine
DX: R05.9 Cough, unspecified (principal); F41.9 Anxiety disorder, unspecified

== ENCOUNTER → 2024-01-28 10:16 | Outpatient (BNVA) | payer BC, SELFPAY | PROVIDERS: PCP Internal Medicine; Visit Provider Internal Medicine ==

== ENCOUNTER 2024-01-28 11:22 | Outpatient (REF) | payer BC, SELFPAY ==
--- NOTE | ~2024-01-28 | XR_ITS ---
EXAMINATION: XR CHEST CLINICAL INFORMATION: Cough, unspecified COMPARISON: None available. TECHNIQUE: PA and lateral views of the chest were obtained. FINDINGS: The lungs are well-expanded. Subtle asymmetric right lung bases opacities. No pleural effusion, pulmonary edema or pneumothorax. The cardiomediastinal silhouette is within normal limits for technique. No acute osseous abnormality. XR/XR chest 2V IMPRESSION: Subtle asymmetric right lung base opacities may represent developing pneumonia in the appropriate clinical setting, versus atelectasis or artifact. Electronically signed by: Courtney Barragan DO 01/31/2024 10:04 AM EDT
== END 2024-01-28 11:23 | disposition home or self-care (01) ==
LOC: HO.HMGCX 11:22
PROVIDERS: PCP Internal Medicine; Visit Provider Internal Medicine
DX: R05.9 Cough, unspecified (principal); F41.9 Anxiety disorder, unspecified
CPT/HCPCS: 71046

== ENCOUNTER 2024-02-14 14:13 | Outpatient (AMB) | payer BC, SELFPAY ==
--- NOTE | 2024-02-14 14:15 | A.OFFPC_ITS ---
Vital Signs 02/14/24 14:17 Height 5 ft 2 in Weight 110 lb BMI 20.1 BP 104/62 Blood Pressure Location Lt brachial Position Sitting Pulse 76 Pulse Source Pulse Oximeter Pulse Oximetry (%) 97 Oxygen Delivery Method Room Air Intake Visit Reasons: Followup pneumonia Intake Note: Pt is here today for a follow up visit on pneumonia. Allergies acetaminophen [From Tylox] Allergy (Unknown, Verified 02/14/24 14:25) could not focus, hyper atorvastatin [Lipitor] Allergy (Unknown, Verified 02/14/24 14:25) muscle pain codeine Allergy (Unknown, Verified 02/14/24 14:25) could not focus, hyper latex Allergy (Unknown, Verified 02/14/24 14:25) rash oxycodone Allergy (Unknown, Verified 02/14/24 14:25) could not focus Sulfa (Sulfonamide Antibiotics) Allergy (Unknown, Verified 02/14/24 14:25) pt does not remember amoxicillin Allergy (Verified 02/14/24 14:25) vomiting nausea adhesive Adverse Reaction (Intermediate, Verified 02/14/24 14:25) skin breakdown, degradation of skin to raw layers Hydrocodone-Ibuprofen Allergy (Unknown, Uncoded 02/14/24 14:25) could not focus Medication List - Last Reconciled 02/14/24 by Julieta Luque MD cholecalciferol (vitamin D3) 50 mcg PO DAILY hydrocortisone acetate (Proctocort) 30 mg [place] BEDTIME levothyroxine 125 mcg PO DAILY pravastatin 10 mg PO DAILY Tobacco use date assessed: 02/14/24 Dental Screening Dental Screen Date: 07/21/23 HPI Followup pneumonia HPI Details Pt presents for f/u pneumonia. She completed course of doxycycline and reports only residual cough but no pleurisy fever chills night sweats body aches. [facility] Medical History Sleep apnea Vitamin D deficiency Lung nodules Tobacco dependence Mammogram normal Elevated CEA Hyperglycemia Osteopenia Annual physical exam Hyperlipidemia Hypothyroid Surgical History H/O oophorectomy No pertinent past surgical history Family History Father No problems noted. Mother No problems noted. Social History Housing: House Patient Tobacco Use Status: Current everyday Tobacco user Tobacco use type: Cigarette Cigarettes Per Day: 5 e-Cigarette/Vaping Use: Never Used service: No Current occupational status: employed Cognitive needs: No Hearing needs: No Vision needs: Yes Questionnaire Thrive Questionnaire Date Thrive assessed: 11/16/23 I am a: Patient What is your living situation today?: I choose not to answer this question Within the past 12 months, did the food you bought not last and you didn't have the money to get more?: I choose not to answer this question Within the past 12 months, did you worry whether your food would run out before you got money to buy more?: I choose not to answer this question Do you have trouble paying for medicines?: I choose not to answer this question Do you have trouble getting transportation to medical appointments?: I choose not to answer this question Do you have trouble paying your heating and electricity bill?: I choose not to answer this question Do you have trouble taking care of your child, family member or friend?: I choose not to answer this question Do you have trouble with day-to-day activities such as bathing, preparing meals, shopping, managing finances, etc.?: I choose not to answer this question Are you currently unemployed and looking for a job?: I choose not to answer this question Are you interested in more education?: I choose not to answer this question Please select the resources that you would like help with: None Currently or been in a relationship where the following occur: I choose not to answer THRIVE Score: 0 UMA-7 AMB Questionnaire UMA-7 Date UMA - 7 assessed: 11/16/23 Source: Developed by Drs. David Peña, Lavonne Bruno, Jeff Simmons and colleagues, with an educational marlee from [employer]. Review of Systems Const All systems reviewed & are unremarkable except as noted in HPI and below ENT Reports no additional complaints Card Reports no additional complaints Resp Reports no additional complaints GI Reports no additional complaints Physical exam (Primary Care) Vital Signs: Last Vital Signs Pulse 76 02/14/24 14:17 BP 104/62 02/14/24 14:17 Pulse Ox 97 02/14/24 14:17 Oxygen Delivery Method Room Air 02/14/24 14:17 BMI result Body Mass Index 20.1 Tobacco/Smoking Status: Tobacco use Status Tobacco use date assessed 02/14/24 02/14/24 14:27 Patient Tobacco Use Status Current everyday Tobacco 02/14/24 14:16 Tobacco use type Cigarette 02/14/24 14:16 e-Cigarette/Vaping Use Never Used 02/14/24 14:16 Thrive Assessment: Date of Thrive Assessment Date Thrive assessed 11/16/23 02/14/24 14:16 Currently or been in a relationship where the following occur: I choose not to answer Const General: no acute distress HENMT Face and sinus: Yes normal facial exam Neck Neck: Yes supple Resp Effort & Inspection: normal respiratory effort Auscultation: clear to auscultation bilaterally Cardio Rhythm: regular rhythm Heart sounds: S1 normal heart sound present and S2 normal heart sound present Coding Level of Care Code Est Pt Level 3 (82829) Diagnoses Cough R05.9 Left femoral hernia without obstruction or gangrene K41.90 Assessment & Plan Assessment & Plan (1) Cough: Code(s): R05.9 - Cough, unspecified Category: Medical Plan: Patient will have a repeat chest x-ray in 2 weeks to assess for resolution of infiltrate. Supportive care for residual cough discussed with the patient. (2) Left femoral hernia without obstruction or gangrene: Comment: CT abd/pelvis 07/2023 and US 02/09, f/u with surgeon [facility] Code(s): K41.90 - Unilateral femoral hernia, without obstruction or gangrene, not specified as recurrent Category: Medical Plan: Follow-up with the surgeon Orders: Orders XR chest 1V 2 Weeks R05.9 - Cough, unspecified
[2024-02-14 14:17] VITALS: BP 104/62; PULSE 76; O2SAT 97; BMI 20.1
== END 2024-02-14 15:10 | disposition home or self-care (01) ==
LOC: HO.HMCC 14:14
PROVIDERS: PCP Internal Medicine; Visit Provider Internal Medicine
DX: R05.9 Cough, unspecified (principal); K41.90 Unilateral femoral hernia, without obstruction or gangrene, not specified as recurrent

== ENCOUNTER → 2024-02-14 14:13 | Outpatient (BNVA) | payer BC, SELFPAY | PROVIDERS: PCP Internal Medicine; Visit Provider Internal Medicine ==

== ENCOUNTER 2024-03-29 09:31 | Outpatient (AMB) | payer BC, SELFPAY ==
--- NOTE | 2024-03-29 09:35 | MHC.PC.OV ---
Vital Signs 03/29/24 09:36 Height 5 ft 2 in Weight 109 lb BMI 19.9 BP 126/76 Blood Pressure Location Lt brachial Position Sitting Pulse 83 Pulse Source Pulse Oximeter Pulse Oximetry (%) 97 Oxygen Delivery Method Room Air Intake Visit Reasons: Followup cough Intake Note: Pt is here today for a follow up visit on cough. Allergies acetaminophen [From Tylox] Allergy (Unknown, Verified 03/29/24 09:40) could not focus, hyper atorvastatin [Lipitor] Allergy (Unknown, Verified 03/29/24 09:40) muscle pain codeine Allergy (Unknown, Verified 03/29/24 09:40) could not focus, hyper latex Allergy (Unknown, Verified 03/29/24 09:40) rash oxycodone Allergy (Unknown, Verified 03/29/24 09:40) could not focus Sulfa (Sulfonamide Antibiotics) Allergy (Unknown, Verified 03/29/24 09:40) pt does not remember amoxicillin Allergy (Verified 03/29/24 09:40) vomiting nausea adhesive Adverse Reaction (Intermediate, Verified 03/29/24 09:40) skin breakdown, degradation of skin to raw layers Hydrocodone-Ibuprofen Allergy (Unknown, Uncoded 03/29/24 09:40) could not focus Tobacco use date assessed: 02/14/24 Fall risk assessment: No Falls in past year Last assessed Fall Risk: 03/29/24 Dental Screening Dental Screen Date: 07/21/23 HPI Followup cough HPI Details Pt presents for f/u URI, almost resolved. Pt reports postnasal drip and occasional cough. Pt denies fever, chills, SOB, wheezing. Pt's sister ( 2 years older) was diagnosed with breast ca. [facility] Medical History Sleep apnea Vitamin D deficiency Lung nodules Tobacco dependence Mammogram normal Elevated CEA Hyperglycemia Osteopenia Annual physical exam Hyperlipidemia Hypothyroid Surgical History H/O oophorectomy No pertinent past surgical history Family History Father No problems noted. Mother No problems noted. Social History Housing: House Patient Tobacco Use Status: Current everyday Tobacco user Tobacco use type: Cigarette Cigarettes Per Day: 5 e-Cigarette/Vaping Use: Never Used service: No Current occupational status: employed Cognitive needs: No Hearing needs: No Vision needs: Yes Questionnaire Thrive Questionnaire Date Thrive assessed: 11/16/23 I am a: Patient What is your living situation today?: I choose not to answer this question Within the past 12 months, did the food you bought not last and you didn't have the money to get more?: I choose not to answer this question Within the past 12 months, did you worry whether your food would run out before you got money to buy more?: I choose not to answer this question Do you have trouble paying for medicines?: I choose not to answer this question Do you have trouble getting transportation to medical appointments?: I choose not to answer this question Do you have trouble paying your heating and electricity bill?: I choose not to answer this question Do you have trouble taking care of your child, family member or friend?: I choose not to answer this question Do you have trouble with day-to-day activities such as bathing, preparing meals, shopping, managing finances, etc.?: I choose not to answer this question Are you currently unemployed and looking for a job?: I choose not to answer this question Are you interested in more education?: I choose not to answer this question Please select the resources that you would like help with: None Currently or been in a relationship where the following occur: I choose not to answer THRIVE Score: 0 UMA-7 AMB Questionnaire UMA-7 Date UMA - 7 assessed: 11/16/23 Source: Developed by Drs. David Peña, Lavonne Bruno, Jeff Simmons and colleagues, with an educational marlee from [employer]. Review of Systems Const All systems reviewed & are unremarkable except as noted in HPI and below Eyes Reports no additional complaints ENT Reports no additional complaints Card Reports no additional complaints Resp Reports no additional complaints GI Reports no additional complaints Reports no additional complaints Physical exam (Primary Care) Vital Signs: Last Vital Signs Pulse 83 03/29/24 09:36 BP 126/76 03/29/24 09:36 Pulse Ox 97 03/29/24 09:36 Oxygen Delivery Method Room Air 03/29/24 09:36 BMI result Body Mass Index 19.9 Tobacco/Smoking Status: Tobacco use Status Tobacco use date assessed 02/14/24 03/29/24 09:35 Patient Tobacco Use Status Current everyday Tobacco 03/29/24 09:35 Tobacco use type Cigarette 03/29/24 09:35 e-Cigarette/Vaping Use Never Used 03/29/24 09:35 Thrive Assessment: Date of Thrive Assessment Date Thrive assessed 11/16/23 03/29/24 09:35 Currently or been in a relationship where the following occur: I choose not to answer Const General: no acute distress HENMT Ears: hearing grossly normal bilaterally Throat: Yes posterior oropharynx normal Eyes General: appearance normal, both eyes and all related structures Neck Neck: Yes no lymphadenopathy and Yes supple Resp Effort & Inspection: normal respiratory effort Auscultation: clear to auscultation bilaterally Cardio Rhythm: regular rhythm Heart sounds: S1 normal heart sound present and S2 normal heart sound present GI Inspection: Yes normal to inspection Palpation (GI): Soft to palpation Coding Level of Care Code Est Pt Level 3 (25421) Diagnoses Cough R05.9 Assessment & Plan Assessment & Plan (1) Cough: Comment: negative CXR 02/2024 Code(s): R05.9 - Cough, unspecified Category: Medical Plan: resolving, supportive care. Pt will have femoral hernia,
[2024-03-29 09:36] VITALS: BP 126/76; PULSE 83; O2SAT 97; BMI 19.9
== END 2024-03-29 11:23 | disposition home or self-care (01) ==
PROVIDERS: PCP Internal Medicine; Visit Provider Internal Medicine
DX: R05.9 Cough, unspecified (principal)

== ENCOUNTER → 2024-03-29 09:31 | Outpatient (BNVA) | payer BC, SELFPAY | PROVIDERS: PCP Internal Medicine; Visit Provider Internal Medicine ==

== ENCOUNTER 2024-08-18 13:24 | Outpatient (AMB) | payer BC, SELFPAY ==
--- NOTE | 2024-08-18 13:38 | MHC.PC.OV ---
Vital Signs 08/18/24 13:39 Height 5 ft 2 in Weight 110 lb BMI 20.1 BP 118/68 Blood Pressure Location Lt brachial Position Sitting Respiration 18 Pulse 78 Pulse Source Pulse Oximeter Temp 98.2 F Temp Source Oral Pulse Oximetry (%) 98 Oxygen Delivery Method Room Air Intake Visit Reasons: Annual PE Intake Note: Pt is here today for PE. Allergies acetaminophen [From Tylox] Allergy (Unknown, Verified 08/18/24 13:46) could not focus, hyper atorvastatin [Lipitor] Allergy (Unknown, Verified 08/18/24 13:46) muscle pain codeine Allergy (Unknown, Verified 08/18/24 13:46) could not focus, hyper latex Allergy (Unknown, Verified 08/18/24 13:46) rash oxycodone Allergy (Unknown, Verified 08/18/24 13:46) could not focus Sulfa (Sulfonamide Antibiotics) Allergy (Unknown, Verified 08/18/24 13:46) pt does not remember amoxicillin Allergy (Verified 08/18/24 13:46) vomiting nausea adhesive Adverse Reaction (Intermediate, Verified 08/18/24 13:46) skin breakdown, degradation of skin to raw layers Hydrocodone-Ibuprofen Allergy (Unknown, Uncoded 08/18/24 13:46) could not focus Medication List - Last Reconciled 08/18/24 by Julieta Luque MD cholecalciferol (vitamin D3) 50 mcg PO DAILY hydrocortisone acetate (Proctocort) 30 mg [place] BEDTIME levothyroxine 125 mcg PO DAILY pravastatin 10 mg PO DAILY Tobacco use date assessed: 08/18/24 Fall risk assessment: No Falls in past year Last assessed Fall Risk: 08/18/24 Dental Screening Dental Screen Date: 08/18/24 Did you have a dental visit in the last 12 months?: Yes Did you have a dental problem in the last 6 months where you did not have access to dental care?: No Was dental information given to patient?: Patient has dentist HPI Annual PE HPI Details Pt presents for PE. She will have a right breast surgery for atypical dysplasia by Dr. Ellis. [facility] Medical History (Updated 08/18/24 @ 15:54 by Julieta Luque MD) Abnormality of right breast on screening mammography Sleep apnea Vitamin D deficiency Lung nodules Tobacco dependence Mammogram normal Elevated CEA Hyperglycemia Osteopenia Annual physical exam Hyperlipidemia Hypothyroid Surgical History H/O oophorectomy No pertinent past surgical history Family History Father No problems noted. Mother No problems noted. Social History Housing: House Patient Tobacco Use Status: Current everyday Tobacco user Tobacco use type: Cigarette Cigarettes Per Day: 5 e-Cigarette/Vaping Use: Never Used service: No Current occupational status: employed Cognitive needs: No Hearing needs: No Vision needs: Yes Questionnaire PHQ-9 Over the last 2 weeks, how often have you been bothered by any of the following problems? 53674 - PHQ-9 Billing: Patient declined-do not bill Source: Developed by Drs. David Peña, Lavonne Bruno, Jeff Simmons and colleagues, with an educational marlee from [employer]. Thrive Questionnaire Date Thrive assessed: 08/18/24 I am a: Patient What is your living situation today?: I choose not to answer this question Within the past 12 months, did the food you bought not last and you didn't have the money to get more?: I choose not to answer this question Within the past 12 months, did you worry whether your food would run out before you got money to buy more?: I choose not to answer this question Do you have trouble paying for medicines?: I choose not to answer this question Do you have trouble getting transportation to medical appointments?: I choose not to answer this question Do you have trouble paying your heating and electricity bill?: I choose not to answer this question Do you have trouble taking care of your child, family member or friend?: I choose not to answer this question Do you have trouble with day-to-day activities such as bathing, preparing meals, shopping, managing finances, etc.?: I choose not to answer this question Are you currently unemployed and looking for a job?: I choose not to answer this question Are you interested in more education?: I choose not to answer this question Please select the resources that you would like help with: None Currently or been in a relationship where the following occur: I choose not to answer THRIVE Score: 0 AUDIT C Alcohol Use Questionnaire (AUDIT-C) 1. How often do you have a drink containing alcohol?: 2-4 times a month 2. How many drinks containing alcohol do you have on a typical day when you are drinking?: 1 or 2 3. How often do you have six or more drinks on one occasion?: Never Total Score: 2 UMA-7 AMB Questionnaire UMA-7 Date UMA - 7 assessed: 08/18/24 Feeling nervous, anxious, or on edge: 0 = Not at all Not being able to stop or control worryin = Not at all Worrying too much about different things: 0 = Not at all Trouble relaxin = Not at all Being so restless that it is hard to sit still: 0 = Not at all Becoming easily annoyed or irritable: 0 = Not at all Feeling afraid as if something awful might happen: 0 = Not at all Total UMA-7 score (0-4 normal; 5-9 mild; 10-14 moderate; 15-21 severe): 0 Source: Developed by Drs. David Peña, Lavonne Bruno, Jeff Simmons and colleagues, with an educational marlee from [employer]. UMA-7 Assessment Billing UMA-7 Assessment Tool: UMA-7 Assessment 25553 Review of Systems Const All systems reviewed & are unremarkable except as noted in HPI and below Reports no additional complaints Eyes Reports no additional complaints ENT Reports no additional complaints Card Reports no additional complaints Resp Reports no additional complaints GI Reports no additional complaints Reports no additional complaints Physical exam (Primary Care) Vital Signs: Last Vital Signs Temp 98.2 F 08/18/24 13:39 Pulse 78 08/18/24 13:39 Resp 18 08/18/24 13:39 BP 118/68 08/18/24 13:39 Pulse Ox 98 08/18/24 13:39 Oxygen Delivery Method Room Air 08/18/24 13:39 BMI result Body Mass Index 20.1 Tobacco/Smoking Status: Tobacco use Status Tobacco use date assessed 08/18/24 08/18/24 13:53 Patient Tobacco Use Status Current everyday Tobacco 08/18/24 13:39 Tobacco use type Cigarette 08/18/24 13:39 e-Cigarette/Vaping Use Never Used 08/18/24 13:39 PHQ-9: PHQ-9 Score PHQ-9: Total score 0 08/18/24 13:39 Thrive Assessment: Date of Thrive Assessment Date Thrive assessed 08/18/24 08/18/24 13:39 Currently or been in a relationship where the following occur: I choose not to answer Const General: no acute distress HENMT Head: Yes normal to inspection Ears: hearing grossly normal bilaterally General nose exam: Normal external nose present Mouth: Normal oral and palatal mucosa present Eyes General: appearance normal, both eyes and all related structures Neck Neck: Yes no lymphadenopathy and Yes supple Resp Effort & Inspection: normal respiratory effort Auscultation: clear to auscultation bilaterally Cardio Rhythm: regular rhythm Heart sounds: S1 normal heart sound present and S2 normal heart sound present GI Inspection: Yes normal to inspection Palpation (GI): Soft to palpation Auscultation: normal bowel sounds Coding Level of Care Code Est Pt Prev Care >65y(29766) Diagnoses Hx of colonoscopy Z98.890 Hyponatremia E87.1 Abnormality of right breast on screening mammography R92.8 Hyperlipidemia E78.5 Annual physical exam Z00.00 Hypothyroid E03.9 Additional Codes UMA-7 Assessment Billing - UMA-7 Assessment Tool: UMA-7 Assessment 20677 ([id number]) Assessment & Plan Assessment & Plan (1) Hx of colonoscopy: Comment: Dr. Madden 2019, 1 small polyp Code(s): Z98.890 - Other specified postprocedural states Category: Surgical Plan: Follow-up with GI (2) Hyponatremia: Comment: Mild and chronic secondary to increase fluid p.o. intake Code(s): E87.1 - Hypo-osmolality and hyponatremia Category: Medical Plan: Patient was advised to decrease fluid intake (3) Abnormality of right breast on screening mammography: Comment: Biopsy showed atypical cells. Patient will have lumpectomy by Dr. Ellis 08/2024 at [facility] Code(s): R92.8 - Other abnormal and inconclusive findings on diagnostic imaging of breast Category: Medical Plan: Follow-up with the breast surgeon (4) Hyperlipidemia: Code(s): E78.5 - Hyperlipidemia, unspecified Category: Medical Plan: Continue statin (5) Annual physical exam: Code(s): Z00.00 - Encounter for general adult medical examination without abnormal findings Category: Medical Plan: Well-balanced diet regular physical activity discussed with the patient (6) Hypothyroid: Code(s): E03.9 - Hypothyroidism, unspecified Category: Medical Plan: Continue levothyroxine Orders: Orders Lipid Panel 1 Year E03.9 - Hypothyroidism, unspecified, E78.5 - Hyperlipidemia, unspecified, Z00.00 - Encounter for general adult medical examination without abnormal findings TSH reflex Free T4 1 Year E03.9 - Hypothyroidism, unspecified, E78.5 - Hyperlipidemia, unspecified, Z00.00 - Encounter for general adult medical examination without abnormal findings Comprehensive [place]. Panel Fast 1 Year E03.9 - Hypothyroidism, unspecified, E78.5 - Hyperlipidemia, unspecified, Z00.00 - Encounter for general adult medical examination without abnormal findings Complete Blood Count Auto Diff 1 Year E03.9 - Hypothyroidism, unspecified, E78.5 - Hyperlipidemia, unspecified, Z00.00 - Encounter for general adult medical examination without abnormal findings Medications: Refilled levothyroxine 125 mcg PO DAILY 90 tabs 3RF E03.9 - Hypothyroidism, unspecified pravastatin 10 mg PO DAILY 90 tabs 3RF
[2024-08-18 13:39] VITALS: BP 118/68; PULSE 78; RESP 18; TEMP 36.8; O2SAT 98; BMI 20.1
== END 2024-08-18 14:55 | disposition home or self-care (01) ==
LOC: HO.HMCC 13:25
PROVIDERS: PCP Internal Medicine; Visit Provider Internal Medicine
DX: Z98.890 Other specified postprocedural states (principal); E87.1 Hypo-osmolality and hyponatremia; R92.8 Other abnormal and inconclusive findings on diagnostic imaging of breast; E78.5 Hyperlipidemia, unspecified; Z00.00 Encounter for general adult medical examination without abnormal findings; E03.9 Hypothyroidism, unspecified

== ENCOUNTER → 2024-08-18 13:24 | Outpatient (BNVA) | payer BC, SELFPAY | PROVIDERS: PCP Internal Medicine; Visit Provider Internal Medicine | DX: Z00.00 Encounter for general adult medical examination without abnormal findings (principal); E87.1 Hypo-osmolality and hyponatremia; R92.8 Other abnormal and inconclusive findings on diagnostic imaging of breast; E78.5 Hyperlipidemia, unspecified; E03.9 Hypothyroidism, unspecified; Z79.899 Other long term (current) drug therapy | CPT/HCPCS: 96127 ==